=== PATIENT | male | born 1970 | race Caucasian/White ===

== ENCOUNTER → 2025-02-21 | Outpatient (CLI) | payer OTHER | END | disposition home or self-care (01) | LOC: RAD 11:40 | PROVIDERS: ATTEND Physician Assistant | DX: M47.817 Spondylosis without myelopathy or radiculopathy, lumbosacral region (principal); Z00.00 Encounter for general adult medical examination without abnormal findings; M48.07 Spinal stenosis, lumbosacral region | CPT/HCPCS: 72100 ==